=== PATIENT | female | born 1945 | race Caucasian/White ===

== ENCOUNTER → 2017-06-25 16:48 | Outpatient (CLI) | payer MEDICARE, OTHER ==
[2015-12-20 08:17] VITALS: BMI 22.1
[~2017-06-25 16:48] MED LIST: ALENDRONATE SOD70 MG PO; CALTRATE 600 M600 M1 PO; CRESTOR20 MG PO; FLAGYL500 MG PO; HYDROCHLOROTHIA25 MG PO; IMODIUM2 MG PO; K-TAB10 MEQ; LOMOTIL TABLET1 TAB PO; MULTI-DAY VITAM1 TAB PO; ROPINIROLE HCL2 MG PO; VITAMIN B-121000 MCG PO; VITAMIN D31000 UNIT PO
== END | disposition home or self-care (01) ==
LOC: D.MAMMO 13:15
DX: Z12.31 Encounter for screening mammogram for malignant neoplasm of breast (principal)

== ENCOUNTER → 2018-07-02 17:48 | Outpatient (CLI) | payer MEDICARE, OTHER ==
[2015-12-20 08:17] VITALS: BMI 22.1
== END | disposition home or self-care (01) ==
LOC: D.MAMMO 15:15
DX: Z12.31 Encounter for screening mammogram for malignant neoplasm of breast (principal)

== ENCOUNTER 2019-07-16 09:00 | Outpatient (CLI) | payer MEDICARE, OTHER ==
[2015-12-20 08:17] VITALS: BMI 22.1
== END 2019-07-16 10:00 | disposition home or self-care (01) ==
LOC: D.MAMMO 09:00
PROVIDERS: ATTEND Family Medicine
DX: Z12.31 Encounter for screening mammogram for malignant neoplasm of breast (principal)

== ENCOUNTER 2020-06-21 11:53 | Outpatient (CLI) | payer MEDICARE, OTHER ==
[~2020-06-21] VITALS: Ht 152.4 cm; Wt 57.3 kg
[2020-06-21 13:22] VITALS: Ht 152.4 cm; Wt 57.3 kg
--- NOTE | 2020-06-21 17:27 | NUR ---
1710 IV REMOVED AND INSTRUCTIONS GIVEN.
== END 2020-06-21 17:20 | disposition home or self-care (01) ==
LOC: D.OPS 11:53
PROVIDERS: ATTEND Nurse Practitioner Family
DX: D64.9 Anemia, unspecified (principal)